=== PATIENT | male | born 1960 | race Caucasian/White ===

== ENCOUNTER → 2017-09-06 | Outpatient (CLI) | payer OTHER ==
[~2017-09-06] MED LIST: CEPH500C PO; DICL100G18 TP; OXYC-12 PO; PANT40TA2 PO
== END ==
LOC: PREOP 12:24
PROVIDERS: ATTEND Surgery
DX: Z01.818 Encounter for other preprocedural examination (principal); R10.13 Epigastric pain

== ENCOUNTER 2017-09-07 07:40 | Day surgery (SDC) | payer OTHER ==
[~2017-09-07] VITALS: Ht 182.9 cm; Wt 103.4 kg
[~2017-09-07 07:40] MED LIST changes: -PANT40TA2 PO
--- OUTSIDE RECORDS SUMMARY | 2017-09-07 07:44 | XMS REPORT | Continuity of Care Document ---
Author Author [facility] Organization [facility] Address Unknown Phone Unavailable Allergies Active Description Code Type Severity Reaction Onset Reported/Identified Relationship to Patient Clinical Status Yes aspirin Drug Allergy N/A N/A 07/08/2009 Yes aspirin [id number] Drug Allergy Mild N/A 07/06/2015 Medications There is no data. Problems Date Dx Coded Attending Type Code Diagnosis Diagnosed By 10/03/2013 LULA OWENS DO V06.1 TDAP DX 07/03/2015 JAXON BRAY, GEO Garcia Ot Z01.818 07/06/2015 JAXON BRAY, GEO Garcia Ot K57.90 DVRTCLOS OF INTEST, PART UNSP, W/O PERF 07/06/2015 GEO COATES MD Ot K63.5 POLYP OF COLON 07/06/2015 JAXON BRAY, GEO Garcia Ot Z83.71 FAMILY HISTORY OF COLONIC POLYPS 07/07/2015 JAXON BRAY, GEO Garcia Ot K57.90 07/07/2015 GEO COATES MD, Ot K63.5 07/07/2015 GEO COATES MD, Ot Z83.71 Procedures There is no data. Results There is no data. Encounters ACCT No. Visit Date/Time Discharge Status Pt. Type Provider Facility Loc./Unit Complaint [id number] 07/06/2015 10:20:00 07/06/2015 13:30:00 DIS Outpatient GEO COATES MD [facility] SDC HEM POS STOOL [id number] 07/02/2015 06:15:00 07/02/2015 14:44:00 DIS Outpatient GEO COATES MD [facility] PREOP [id number] 04/21/2015 11:06:00 04/21/2015 23:59:59 CLS Outpatient ERROL CRAWLEY [facility] OCC ANNUAL EXAM [id number] 10/03/2013 12:59:00 10/03/2013 23:59:59 [facility] Outpatient LULA OWENS DO
[2017-09-07] MEDS ORDERED: NS IV 500 ML 500 ML ONE (07:48)
[2017-09-07] MEDS ORDERED: NS IV 500 ML 500 ML IV PRN (08:10)
[2017-09-07 08:14] VITALS: BP 152/89
[2017-09-07] MEDS ORDERED: NALOXONE 0.4 MG/ML 1 ML (NARCAN) VIAL IVP PRN (08:15)
[2017-09-07] MEDS ORDERED: HURRICAINE EXT TUBE (BENZOCAINE) XX PRN (08:15)
[2017-09-07] MEDS ORDERED: FLUMAZENIL (ROMAZICON) 0.1 MG/ML 5 ML VIAL INJ PRN (08:15)
[2017-09-07] MEDS ORDERED: PANT40TA2 PO (08:29)
[2017-09-07] MEDS ORDERED: MIDAZOLAM 2 MG/2 ML (VERSED) VIAL ONE ×3 (08:53)
[2017-09-07] MEDS ORDERED: HURRICAINE EXT TUBE (BENZOCAINE) ONE (08:53)
[2017-09-07] MEDS ORDERED: fentaNYL INJECTION 100 MCG/2 ML AMP ONE (08:53)
--- NOTE | 2017-09-07 08:59 | History & Physicial ---
History of Present Illness History of Present Illness Reason for visit/HPI Epigastric pain and bloating for 4 weeks/ Date of Admission 09/07/17 Date Seen by Provider: September 07, 2017 Time Seen by Provider: 08:58 I consulted on this patient on 09/07/17 08:58 Attending Physician Geo Coates MD Admitting Physician Eris Rice MD Consult Allergies and Home Medications Allergies Coded Allergies: aspirin (Verified Allergy, Mild, 07/06/15) Home Medications Pantoprazole Sodium 40 Mg Tablet.dr, 40 MG PO DAILY, (Reported) Patient Home Medication List Home Medication List Reviewed: Yes Past Lirczja-Mxmlgj-Qxfwbo Hx Patient Social History Marrital Status: Employed/Student: employed Alcohol Use: Occasionally Uses Alcohol Beverage of Choice: Beer Recreational Drug Use: No Smoking Status: Never a Smoker Recent Foreign Travel: No Contact w/other who traveled: No Recent Hopitalizations: No Recent Infectious Disease Expo: No Immunizations Up To Date Tetanus Booster (TDap): Unknown Seasonal Allergies Seasonal Allergies: No Respiratory Currently Using CPAP: No Currently Using BIPAP: No Reproductive System Hx Reproductive Disorders: No Sexually Transmitted Disease: No HIV/AIDS: No HEENT Loss of Vision: Bilateral Hearing Impairment: Denies Constitutional: no symptoms reported EENTM: no symptoms reported Respiratory: no symptoms reported Cardiovascular: no symptoms reported Gastrointestinal: see HPI Genitourinary: no symptoms reported Musculoskeletal: no symptoms reported Skin: no symptoms reported Psychiatric/Neurological: No Symptoms Reported Physical Exam Vital Signs Vital Signs - First Documented 09/07/17 08:14 Temp 97.1 Pulse 66 Resp 18 B/P (MAP) 152/89 (110) Pulse Ox 98 O2 Delivery Room Air Capillary Refill : General Appearance: No Apparent Distress Neck: Normal Inspection Respiratory: Lungs Clear Cardiovascular: Regular Rate, Rhythm Gastrointestinal: Non Tender, Soft Extremity: Normal Inspection Neurologic/Psychiatric: Oriented x3 Skin: Warm/Dry Assessment/Plan Assessment and Plan Epigastric pain, for EGD Admission Diagnosis Admission Status: Other (Outpt Proc) GEO COATES MD September 07, 2017 08:59
[2017-09-07] MEDS: MIDAZOLAM 2 MG/2 ML (VERSED) VIAL IVP PRN ×3 (09:00→09:06)
--- NOTE | 2017-09-07 09:00 | Conscious Sedation/ASA ---
Conscious Sedation Pre-Proced Time Reviewed: 09:00 ASA Class: 1 Airway Mallampati Classification: ([place] appropriate class) I. II. III, IV Lungs Heart ASA score ASA 1: a normal healthy patient ASA 2: a patient with a mild systemic disease (mid diabetes, controlled hypertension, obesity ASA 3: a patient with a severe systemic disease that limits activity (angina , COPD, prior Myocardial infarction) ASA 4: a patient with an incapacitating disease that is a constant threat to life (CHF, renal failure) ASA 5: a moribund patient not expected to survive 24 hrs. (ruptured aneurysm) ASA 6: a declared brain patient whose organs are being harvested. For emergent operations, add the letter E after the classification Grade 1 Sedation Plan: Discussed options with patient/fam Note The patient is an appropriate candidate to undergo the planned procedure, sedation, and anesthesia. The patient immediately re-assessed prior to indication. GEO COATES MD September 07, 2017 09:00
[2017-09-07] MEDS: fentaNYL INJECTION 100 MCG/2 ML AMP IVP PRN ×2 (09:01→09:04)
--- NOTE | 2017-09-07 09:14 | Discharge Inst-Simple/Standard ---
Discharge Inst-Standard Discharge Medications New, Converted or Re-Newed RX: Other Patient Instructions/Follow Up Plan of Care/Instructions/FU: Please schedule a gallbladder ultrasound as an outpatient. To avoid NSAIDs Activity as Tolerated: Yes Discharge Diet: No Restrictions GEO COATES MD September 07, 2017 09:14
[2017-09-07 09:35] VITALS: BP 139/87
[2017-09-07 10:00] VITALS: BP 132/87
[2017-09-07 10:15] VITALS: BP 132/87
--- NOTE | 2017-09-07 13:37 | OPERATIVE REPORT ---
DATE OF SERVICE: 09/07/2017 PROCEDURE: Upper GI endoscopy with antral biopsy. SURGEON: Geo Coates MD INDICATION FOR PROCEDURE: This gentleman came in for an upper endoscopy to evaluate new onset of epigastric pain and occasional heartburn. Informed consent was obtained after reviewing the procedure in detail. DESCRIPTION OF PROCEDURE: He was placed in left lateral decubitus position and his vital signs were monitored. Conscious sedation was achieved using Versed and fentanyl. The flexible gastroscope was then introduced down the esophagus, passed the stomach, into the proximal duodenum. FINDINGS: ESOPHAGUS: Short hiatal hernia with grade II esophagitis. STOMACH: Distal gastric erosions and a moderate degree of gastritis. Biopsy for H. pylori was obtained. DUODENUM: Changes of mild duodenitis were found along the first part. He tolerated the procedure well and was taken back to the nursing area in a stable condition. IMPRESSION: Epigastric pain. Esophagitis, gastritis with gastric erosions and duodenitis. Helicobacter status pending. Recommend continuing proton pump inhibitors. Job ID: [id number] DocumentID: [id number] Dictated Date: 09/07/2017 09:12:20 Glassware Finisher Date: 09/07/2017 13:33:55 Dictated By: GEO COATES MD MTDD
== END 2017-09-07 10:15 | disposition home or self-care (01) ==
LOC: ENDO 07:40
PROVIDERS: ATTEND Surgery
DX: K20.9 Esophagitis, unspecified (principal); K29.70 Gastritis, unspecified, without bleeding; K25.9 Gastric ulcer, unspecified as acute or chronic, without hemorrhage or perforation; K29.80 Duodenitis without bleeding; K44.9 Diaphragmatic hernia without obstruction or gangrene
CPT/HCPCS: 88305

== ENCOUNTER → 2017-09-13 | Outpatient (CLI) | payer OTHER ==
[~2017-09-13] MED LIST changes: +PANT40TA2 PO
--- NOTE | 2017-09-13 11:28 | Diagnostic Imaging Report ---
PROCEDURE: US Gallbladder. TECHNIQUE: Multiple real-time grayscale images were obtained over the right upper quadrant in various projections. INDICATION: Right upper quadrant pain. The liver is mildly enlarged at 19 cm. No discrete liver mass is detected. Portal vein is patent and shows normal directional flow. Gallbladder is without stones or sludge. No wall thickening or pericholecystic fluid is seen. No biliary duct dilatation is identified. Pancreas is obscured by bowel gas. The right kidney is unremarkable. There is no ascites. Impression: No evidence of cholelithiasis or acute cholecystitis. Dictated by: Dictated on workstation # [id number]
== END ==
LOC: RAD 08:22
PROVIDERS: ATTEND Surgery
DX: R10.11 Right upper quadrant pain (principal)
CPT/HCPCS: 76705